=== PATIENT | male | born 1950 | race Caucasian/White ===

== ENCOUNTER 2018-11-01 07:33 | Inpatient (IN) | payer MEDICARE ==
[~2018-11-01] VITALS: Ht 172.7 cm; Wt 75.3 kg
[2018-11-01] MEDS ORDERED: ONDA4TAB11 PO (08:09)
[2018-11-01] MEDS ORDERED: ATOR40TA PO (08:09)
[2018-11-01] MEDS ORDERED: TAMS-12 PO (08:09)
[2018-11-01] MEDS ORDERED: SUCR1ORA4 PO (08:09)
[2018-11-01] MEDS ORDERED: ACETAMINOPHEN 325 MG TABLET PO PRN (08:30)
[2018-11-01] MEDS ORDERED: clonazePAM 0.5 MG TABLET PO PRN (08:30)
[2018-11-01] MEDS ORDERED: MAG HYDROX/AL HYDROX/SIMETH 30 ML UDC PO PRN (08:30)
[2018-11-01] MEDS ORDERED: MAGNESIUM HYDROXIDE 30 ML UDC PO PRN (08:30)
[2018-11-01] MEDS ORDERED: TEMAZEPAM 7.5 MG CAPSULE PO PRN (08:30)
--- NOTE | 2018-11-01 09:12 | NUR ---
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 HX OF CKD ,PNEUMONIA ,CKD,PATIENT PREOCCUPIED WITH HIS OWN THOUGHTS ,PATIENT SEEN BY AND SHAUNA RN LIAISON ALL ADMISSION ORDERS .PATIENT AMBULATE WITH WALKER ,SKIN INTACT .PATIENT'S RIGHT HAND BOOK GIVEN ND EXPLAINED TO PATIENT ABLE TO VERBALIZE UNDERSTANDING START PATIENT ON Q15 MINUTES SAFETY CHECK .
[2018-11-01] MEDS: ESCITALOPRAM OXALATE (10 MG) 10 MG TABLET PO SCH (14:26)
[2018-11-01] MEDS: QUETIAPINE FUMARATE 25 MG TABLET PO SCH ×2 (14:26→18:26)
[2018-11-01] MEDS ORDERED: ONDANSETRON 4 MG TAB.RAPDIS PO PRN (14:30)
[2018-11-01 16:00] VITALS: BP 105/55
[2018-11-01] MEDS: SUCRALFATE 1 G/10 ML UDC PO SCH ×2 (17:30→22:00)
[2018-11-01] MEDS: ATORVASTATIN 40 MG TABLET PO SCH (18:26)
[2018-11-01] MEDS: TAMSULOSIN 0.4 MG CAP.SR.24H PO SCH (18:26)
[2018-11-01 19:42] VITALS: BP 116/66
[2018-11-02 06:46] LABS: ALBUMIN 2.6 g/dL (3.4-5.0); BILIRUBIN,TOTAL 0.8 mg/dL (0.2-1.0); CALCIUM, SERUM 9.1 mg/dL (8.5-10.1); CREATININE 3.1 mg/dL (0.6-1.3); TOTAL PROTEIN, SERUM 7.1 g/dL (6.4-8.2)
[2018-11-02] MEDS: SUCRALFATE 1 G/10 ML UDC PO SCH ×4 (07:30→22:00)
[2018-11-02 08:00] VITALS: BP 101/63
[2018-11-02] MEDS: QUETIAPINE FUMARATE 25 MG TABLET PO SCH ×2 (09:56→17:12)
[2018-11-02] MEDS: ESCITALOPRAM OXALATE (10 MG) 10 MG TABLET PO SCH (09:56)
--- NOTE | 2018-11-02 10:21 | NUR ---
rn notes informed pharmacy of missing medications. will continue to follow up.
--- NOTE | 2018-11-02 11:54 | NUR ---
rn notes informed pharmacy of missing medications. will continue to follow up.
[2018-11-02 17:09] VITALS: BP 95/65
[2018-11-02] MEDS: ATORVASTATIN 40 MG TABLET PO SCH (17:12)
[2018-11-02] MEDS: TAMSULOSIN 0.4 MG CAP.SR.24H PO SCH (17:12)
--- NOTE | 2018-11-02 20:18 | NUR ---
GPS/RN PATIENT IS SLEEPING AT THIS TIME, APPEAR COMFORTABLE, BREATHING EVEN AND UNLABORED. WILL MONITOR PER GPS POLICY.
[2018-11-02 20:20] VITALS: BP 106/58
[2018-11-03 02:40] LABS: APPEARANCE,URINE CLEAR (CLEAR); BILIRUBIN,URINE NEGATIVE (NEGATIVE); BLOOD, URINE NEGATIVE Ery/uL (NEGATIVE); COLOR,URINE YELLOW (YELLOW); KETONES,URINE TRACE (NEGATIVE); LEUKOCYTE ESTERASE ,URINE NEGATIVE (NEGATIVE); NITRITE, URINE NEGATIVE (NEGATIVE); PH,URINE 5.5 (5.0-8.0); PROTEIN,URINE TRACE mg/dl (NEGATIVE); UGLUCOSE NEGATIVE (NEGATIVE); UROBILINOGEN,URINE 0.2 EU/dL (0.2)
[2018-11-03 02:55] LABS: BACTERIA,URINE None seen /HPF (None Seen); EOSINOPHIL,URINE None Seen; RBC,URINE 0-2 /HPF (0-2); SQUAMOUS EPITHELIAL CELL,UR Few /HPF (None Seen); WBC,URINE 0-2 /HPF (0-3)
[2018-11-03 02:56] LABS: CREATININE, URINE 109.9 MG/DL (30.0-125.0)
[2018-11-03 06:30] LABS: BASOPHILS # (AUTO) 0.1 /CMM (0.0-0.2); BASOPHILS % (AUTO) 0.7 % (0.0-2.0); EOSINOPHILS % (AUTO) 3.6 % (0.0-6.0); HEMATOCRIT 34 % (39-51); HEMOGLOBIN 11.3 g/dL (13.5-17.5); LYMPHOCYTES # (AUTO) 0.6 /CMM (0.8-4.8); LYMPHOCYTES % (AUTO) 5.7 % (20.0-44.0); MEAN CORPUSCULAR HGB CONC 33 g/dl (31.0-36.0); MEAN CORPUSCULAR VOLUME 86 fL (80-96); MONOCYTES # (AUTO) 0.9 /CMM (0.1-1.30); MONOCYTES % (AUTO) 8.7 % (2.0-12.0); NEUTROPHILS # (AUTO) 8.1 /CMM (1.8-8.9); NEUTROPHILS % (AUTO) 81.3 % (43.0-81.0); PLATELET COUNT (AUTO) 323 /CMM (150-450); RED BLOOD CELL COUNT(AUTO) 3.99 MIL/uL (4.5-6.0)
[2018-11-03 06:52] LABS: CALCIUM, SERUM 9.3 mg/dL (8.5-10.1); MAGNESIUM 2.4 mg/dL (1.8-2.4); PHOSPHORUS 3.3 mg/dL (2.5-4.9); POTASSIUM 4.7 mmol/L (3.5-5.1)
[2018-11-03 08:00] VITALS: BP 118/56
[2018-11-03] MEDS: SUCRALFATE 1 G/10 ML UDC PO SCH ×4 (08:52→22:36)
[2018-11-03] MEDS: QUETIAPINE FUMARATE 25 MG TABLET PO SCH ×2 (08:52→17:02)
[2018-11-03] MEDS: ESCITALOPRAM OXALATE (10 MG) 10 MG TABLET PO SCH (08:52)
--- NOTE | 2018-11-03 14:59 | NUR ---
Initial Discharge Note: Pt is currently homeless and is in need of placement. Per pt, he does not know where he can live and asked the SW to find placement for him. SW will work with the pt and the MD regarding appropriate discharge planning. SW will form a safe and proper discharge.
--- NOTE | 2018-11-03 15:00 | NUR ---
SW called the pt's friend, Debra ([phone]), and was unable to make contact. The phone number asked for a mailbox code that the SW does not have.
[2018-11-03 16:00] VITALS: BP 106/53
[2018-11-03] MEDS: ATORVASTATIN 40 MG TABLET PO SCH (17:02)
[2018-11-03] MEDS: TAMSULOSIN 0.4 MG CAP.SR.24H PO SCH (17:02)
[2018-11-03 20:01] VITALS: BP 94/55
[2018-11-04 08:08] LABS: *SPE A/G RATIO 0.8 (0.7-1.7); *SPE ALBUMIN 2.9 g/dL (2.9-4.4); *SPE ALPHA-1-GLOBULIN 0.3 g/dL (0.0-0.4); *SPE ALPHA-2-GLOBULIN 0.9 g/dL (0.4-1.0); *SPE BETA GLOBULIN 1.1 g/dL (0.7-1.3); *SPE GLOBULIN, TOTAL 3.6 g/dL (2.2-3.9); *SPE M-SPIKE Not Observed g/dL (Not Observed); *SPEGAMMA GLOBULIN 1.2 g/dL (0.4-1.8)
[2018-11-04] MEDS: SUCRALFATE 1 G/10 ML UDC PO SCH ×4 (08:08→21:04)
[2018-11-04] MEDS: QUETIAPINE FUMARATE 25 MG TABLET PO SCH ×3 (08:09→17:36)
[2018-11-04] MEDS: ESCITALOPRAM OXALATE (10 MG) 10 MG TABLET PO SCH (08:09)
[2018-11-04 08:31] VITALS: BP 104/59
[2018-11-04 12:09] LABS: PTH, INTACT 66 pg/mL (15-65)
[2018-11-04 16:00] VITALS: BP 122/58
--- NOTE | 2018-11-04 16:15 | NUR ---
Group Note: Pt encouraged the pt to participate in group therapy as he was alert and oriented but the pt stated that he was feeling irritated and did not want to participate because one of the other patients had been shouting all day.
[2018-11-04] MEDS: TAMSULOSIN 0.4 MG CAP.SR.24H PO SCH (17:36)
[2018-11-04] MEDS: ATORVASTATIN 40 MG TABLET PO SCH (17:36)
[2018-11-04 19:44] VITALS: BP 105/64
[2018-11-05 08:00] VITALS: BP 101/59
[2018-11-05] MEDS: ESCITALOPRAM OXALATE (10 MG) 10 MG TABLET PO SCH (08:20)
[2018-11-05] MEDS: QUETIAPINE FUMARATE 25 MG TABLET PO SCH ×3 (08:20→16:40)
[2018-11-05] MEDS: SUCRALFATE 1 G/10 ML UDC PO SCH ×4 (08:21→21:11)
[2018-11-05 16:00] VITALS: BP 98/58
[2018-11-05] MEDS: TAMSULOSIN 0.4 MG CAP.SR.24H PO SCH (17:07)
[2018-11-05] MEDS: ATORVASTATIN 40 MG TABLET PO SCH (17:07)
[2018-11-05 20:00] VITALS: BP 100/61
[2018-11-06 07:19] LABS: ALBUMIN 2.4 g/dL (3.4-5.0); BILIRUBIN,TOTAL 0.5 mg/dL (0.2-1.0); CALCIUM, SERUM 8.9 mg/dL (8.5-10.1); CREATININE 2.9 mg/dL (0.6-1.3); MAGNESIUM 2.1 mg/dL (1.8-2.4); PHOSPHORUS 3.1 mg/dL (2.5-4.9); POTASSIUM 3.9 mmol/L (3.5-5.1); TOTAL PROTEIN, SERUM 6.8 g/dL (6.4-8.2)
[2018-11-06 07:35] LABS: BASOPHILS # (AUTO) 0.1 /CMM (0.0-0.2); EOSINOPHILS % (AUTO) 4.5 % (0.0-6.0); HEMATOCRIT 35 % (39-51); HEMOGLOBIN 11.3 g/dL (13.5-17.5); LYMPHOCYTES # (AUTO) 0.8 /CMM (0.8-4.8); MEAN CORPUSCULAR HGB CONC 33 g/dl (31.0-36.0); MEAN CORPUSCULAR VOLUME 85 fL (80-96); MONOCYTES # (AUTO) 0.9 /CMM (0.1-1.30); MONOCYTES % (AUTO) 10.5 % (2.0-12.0); NEUTROPHILS # (AUTO) 6.4 /CMM (1.8-8.9); PLATELET COUNT (AUTO) 328 /CMM (150-450); RED BLOOD CELL COUNT(AUTO) 4.07 MIL/uL (4.5-6.0); WHITE BLOOD COUNT (AUTO) 8.6 K/uL (4.3-11.0)
[2018-11-06 08:00] VITALS: BP_SYST 100; BP_DIAS 53; BP_DIAS 54
[2018-11-06] MEDS: SUCRALFATE 1 G/10 ML UDC PO SCH ×4 (09:14→21:17)
[2018-11-06] MEDS: QUETIAPINE FUMARATE 25 MG TABLET PO SCH ×3 (09:15→17:43)
[2018-11-06] MEDS: ESCITALOPRAM OXALATE (10 MG) 10 MG TABLET PO SCH (09:16)
--- NOTE | 2018-11-06 11:09 | NUR ---
UNIQUE faxed a referral to [facility] with attention to Hyacinth to the fax number: [phone].
--- NOTE | 2018-11-06 12:01 | NUR ---
Lee Ann ([phone]) from [facility] and she stated that the pt was not accepted to their facility because the pt has exhausted all of his days.
--- NOTE | 2018-11-06 12:12 | NUR ---
UNIQUE faxed a referral to [facility] with attention to Umm to the fax number: [phone].
--- NOTE | 2018-11-06 15:43 | NUR ---
[facility] ([phone]) contacted the and stated that the pt was accepted to their facility. Addendum: 11/06/18 at 1545 by MARIELA MORTON SW [facility].
--- NOTE | 2018-11-06 15:58 | NUR ---
Supportive Counseling: Pt was asleep when the SW walked in and stated that he would just like an update. SW stated that the pt was [facility] into a penit[facility]iary and that his discharge will be set for sometime next week. Pt stated that he agrees to placement and then stated he would not like to attend group therapy or engage in individual counseling any longer.
[2018-11-06 16:00] VITALS: BP 100/59
[2018-11-06 16:36] VITALS: BP 100/59
[2018-11-06] MEDS: TAMSULOSIN 0.4 MG CAP.SR.24H PO SCH (17:43)
[2018-11-06] MEDS: ATORVASTATIN 40 MG TABLET PO SCH (17:43)
[2018-11-06 19:59] VITALS: BP 106/54
[2018-11-07 08:00] VITALS: BP 100/65
[2018-11-07] MEDS: ESCITALOPRAM OXALATE (10 MG) 10 MG TABLET PO SCH (08:29)
[2018-11-07] MEDS: QUETIAPINE FUMARATE 25 MG TABLET PO SCH ×3 (08:29→16:49)
[2018-11-07] MEDS: SUCRALFATE 1 G/10 ML UDC PO SCH ×4 (08:29→21:08)
[2018-11-07 16:00] VITALS: BP 102/59
[2018-11-07] MEDS: TAMSULOSIN 0.4 MG CAP.SR.24H PO SCH (17:26)
[2018-11-07] MEDS: ATORVASTATIN 40 MG TABLET PO SCH (17:26)
[2018-11-07 20:00] VITALS: BP 104/54
[2018-11-08 08:00] VITALS: BP 115/68
[2018-11-08] MEDS: SUCRALFATE 1 G/10 ML UDC PO SCH ×4 (08:24→22:09)
[2018-11-08] MEDS: ESCITALOPRAM OXALATE (10 MG) 10 MG TABLET PO SCH (08:24)
[2018-11-08] MEDS: QUETIAPINE FUMARATE 25 MG TABLET PO SCH ×3 (09:34→17:13)
[2018-11-08 16:00] VITALS: BP 104/63
[2018-11-08] MEDS: TAMSULOSIN 0.4 MG CAP.SR.24H PO SCH (17:13)
[2018-11-08] MEDS: ATORVASTATIN 40 MG TABLET PO SCH (17:13)
[2018-11-08 19:41] VITALS: BP 121/75
[2018-11-09 08:00] VITALS: BP 100/54
[2018-11-09] MEDS: QUETIAPINE FUMARATE 25 MG TABLET PO SCH ×2 (08:35→12:07)
[2018-11-09] MEDS: SUCRALFATE 1 G/10 ML UDC PO SCH ×2 (08:35→12:06)
[2018-11-09] MEDS ORDERED: ESCITALOPRAM OXALATE (10 MG) 10 MG TABLET PO SCH (09:00)
--- NOTE | 2018-11-09 09:48 | NUR ---
SW called the pt's friend, Debra ([phone]), and was unable to make contact. The phone number asked for a mailbox code that the SW does not have.
--- NOTE | 2018-11-09 10:24 | NUR ---
UNIQUE faxed the medication consent and clearance for the pt to [facility] with attention to [facility] to the fax number: [phone].
--- NOTE | 2018-11-09 12:18 | NUR ---
SW called the pt's friend, Debra ([phone]), and she informed the SW that the pt did not agree to go to a facility and that she is going to pick him up and take him to a hotel. She stated that she would take him to his appointments from there. SW stated that this did not seem like an appropriate or safe discharge plan considering his medical issues. She stated that the pt had the right to make his decision.
--- NOTE | 2018-11-09 12:25 | NUR ---
UNIQUE spoke to the pt in his room regarding his placement options. UNIQUE stated that he can either go to a SNF or he can go to the hotel with his friend Debra ([phone]) who will take care of him and take him to his chemo appointment. SW stated that he wants to be discharged to his friend and not the SNF.
--- NOTE | 2018-11-09 12:56 | NUR ---
SW called the pt's friend, Debra ([phone]), and informed her to come pick the pt up around 2:30PM today. She stated that she would reschedule his oncology appointment and then would let the SW know when that will be.
--- NOTE | 2018-11-09 14:58 | NUR ---
Pt was discharged to [facility] [place] [address] [place] [address]; ([phone]). Pts friend, Debra ([phone]), was informed of the discharge and picked up the pt at 2:30pm. Upon discharge, the pt appeared to be in a euthymic mood and presented with a distressed affect. Pt denied both suicidal and homicidal ideation as well as auditory and visual hallucinations. Pt will be under the care of psychiatrist, Dr. Manolo Mcdonald, located at [address] [place] [address]; and label sewer, Dr. Stanley Ashby, located at [address] [facility] [address] [id number]; , and a fax was sent to [phone]. Addendum: 11/09/18 at 1459 by MARIELA CALHOUN Discharge Note Addendum: 11/09/18 at 1503 by MARIELA CALHOUN Pt has an appointment with Dr. Stanley Ashby for 11/12/18 at 1:30PM.
--- NOTE | 2018-11-09 16:30 | NUR ---
RN NOTE: PATIENT WAS DC AT 16:30 TO [facility] [place] [id number] [facility] [id number]. PATIENT'S FRIEND JOSHUA IS TRANSPORTING PATIENT FROM FACILITY. PATIENT WAS A VOLUNTARY ADMISSION D/T INCREASED DEPRESSION AND SI. AT THIS TIME, PATIENT IS CALM, COOPERATIVE, BLUNT AFFECT, WITHDRAWN, ISOLATIVE AND DEPRESSED. PATIENT DENIES SI/HI AT THE TIME OF DISCHARGE. PATIENT IS COMPLIANT WITH MEDICATION ADMINISTRATION AND PLAN OF CARE. NO DISTRESS NOTED. PATIENT HAS NO COMPLAINTS. PATIENT ESCORTED W/ WALKER BY 1 STAFF MEMBER TO PRIVATE VEHICLE. BELONGINGS GIVEN AND REVIEWED WITH PATIENT. MD AWARE OF THE PATIENT'S DC WITH DC ORDERS.
== END 2018-11-09 16:26 | disposition home or self-care (01) | DRG 885 ==
LOC: GPS 07:33
PROVIDERS: ADMIT Psychiatry & Neurology Psychiatry; ATTEND Hospitalist
DX: F33.3 Major depressive disorder, recurrent, severe with psychotic symptoms (principal); N17.9 Acute kidney failure, unspecified; R45.851 Suicidal ideations; N18.4 Chronic kidney disease, stage 4 (severe); K59.00 Constipation, unspecified; Z85.118 Personal history of other malignant neoplasm of bronchus and lung; Z87.01 Personal history of pneumonia (recurrent); K40.90 Unilateral inguinal hernia, without obstruction or gangrene, not specified as recurrent; F17.210 Nicotine dependence, cigarettes, uncomplicated; Z88.0 Allergy status to penicillin; N40.0 Benign prostatic hyperplasia without lower urinary tract symptoms; D13.1 Benign neoplasm of stomach
CPT/HCPCS: 36415; 76770-TC; 80048-TC; 80053-TC; 80061-TC; 81000-TC; 82550-TC; 82570-TC; 83735-TC; 83970; 84100-TC; 84155; 84155-TC; 84165; 84300-TC; 85025-TC; 87081-TC